=== PATIENT | male | born 1990 | race Caucasian/White ===

== ENCOUNTER 2021-12-26 14:39 | Inpatient (IN) | payer MEDICAID, OTHER ==
[~2021-12-26] VITALS: Ht 175.3 cm; Wt 74.6 kg
[2021-12-26] MEDS ORDERED: CEFEPIME 2 GM in SODIUM CHL 0.9% 50 ML IV ONE (20:45)
[2021-12-26] MEDS ORDERED: KETOROLAC TROMETH 30 MG/ML 1ML VIAL IV ONE (20:45)
[2021-12-26] MEDS ORDERED: BACITRACIN TOP OINT 1 UD PKG TOP ONE (20:45)
[2021-12-26] MEDS ORDERED: SODIUM CHLORIDE 0.9% 1,000 ML IV ONE (20:45)
[2021-12-26] MEDS ORDERED: VANCOMYCIN 1GM/250ML 250 ML IV ONE (20:45)
[2021-12-26 22:07] LABS: Mean Corpuscular Hemoglobin 35.3 pg (28.0-32.0); Mean Corpuscular Hgb Conc. 34.7 g/dL (32.0-36.0)
[2021-12-26 22:09] LABS: Basophils # (auto) 0.1 10 ^3/uL (0-0.2); Basophils % (auto) 0.8 % (0.0-2.0); Eosinophils # (auto) 0.2 10 ^3/uL (0-0.8); Eosinophils % (auto) 1.3 % (0.0-7.0); Hematocrit 39.1 % (41.0-53.0); Hemoglobin 13.6 g/dL (13.5-17.5); Lymphocytes # (auto) 1.7 10 ^3/uL (0.4-5.4); Lymphocytes % (auto) 12.3 % (10.0-50.0); Mean Corpuscular Volume 101.7 fL (80.0-100.0); Monocytes # (auto) 1.6 10 ^3/uL (0-1.3); Monocytes % (auto) 12.1 % (0.0-12.0); Neutrophils # (auto) 9.9 10 ^3/uL (1.6-8.6); Neutrophils % (auto) 73.5 % (37.0-80.0); Red Blood Cells 3.85 10^6/uL (4.5-5.90); Red Cell Distribution Width 13.9 % (11.8-14.3); White Blood Cell 13.5 10^3/uL (4.4-10.8)
[2021-12-26 22:27] LABS: Calcium 8.6 mg/dL (8.5-10.1); Potassium 3.8 mmol/L (3.5-5.1)
[2021-12-27] MEDS ORDERED: ONDANSETRON HCL 4 MG/2 ML VIAL IV PRN (04:00)
[2021-12-27] MEDS ORDERED: VANCOMYCIN PER PHARMACY 0 MG IV SCH (04:00)
[2021-12-27] MEDS ORDERED: ACETAMINOPHEN 325 MG TAB PO PRN (04:00)
[2021-12-27] MEDS ORDERED: DOCUSATE SOD 100 MG CAP PO PRN (04:00)
[2021-12-27] MEDS ORDERED: DEXTROSE (50%) 50ML SYRG IV PRN (04:00)
[2021-12-27 04:41] LABS: Basophils # (auto) 0 10 ^3/uL (0-0.2); Eosinophils # (auto) 0.2 10 ^3/uL (0-0.8); Eosinophils % (auto) 1.3 % (0.0-7.0); Hematocrit 37.1 % (41.0-53.0); Hemoglobin 13.1 g/dL (13.5-17.5); Lymphocytes # (auto) 2.1 10 ^3/uL (0.4-5.4); Mean Corpuscular Hemoglobin 35.3 pg (28.0-32.0); Mean Corpuscular Hgb Conc. 35.3 g/dL (32.0-36.0); Monocytes # (auto) 1.5 10 ^3/uL (0-1.3); Monocytes % (auto) 11.6 % (0.0-12.0); Neutrophils # (auto) 9.2 10 ^3/uL (1.6-8.6); Neutrophils % (auto) 71.1 % (37.0-80.0); Nucleated Red Blood Cells % 0.1 %; Red Blood Cells 3.71 10^6/uL (4.5-5.90); Red Cell Distribution Width 14.1 % (11.8-14.3); White Blood Cell 12.9 10^3/uL (4.4-10.8)
[2021-12-27 05:54] LABS: Albumin 2.7 g/dL (3.4-5.0); BUN/Creatinine Ratio 8.9; Calcium 8.5 mg/dL (8.5-10.1); Potassium 4.2 mmol/L (3.5-5.1)
[2021-12-27 05:56] LABS: Bilirubin, Total 0.2 mg/dL (0.2-1.0); Total Protein 6.7 g/dL (6.4-8.2)
[2021-12-27] MEDS: SODIUM CHLORIDE 0.9% 1,000 ML IV SCH ×2 (06:07→20:40)
[2021-12-27] MEDS ORDERED: MORPHINE SULFATE INJ 2 MG/ml SYRG IV PRN (06:15)
[2021-12-27] MEDS ORDERED: NITROGLYCERIN 0.4 MG SL TAB SL PRN (06:15)
[2021-12-27] MEDS: CEFEPIME 1GM/ 50ML 50 ML IV SCH ×4 (07:59→23:05)
[2021-12-27] MEDS: InsuLIN REG 1unit/0.01ml Soln (100units/ml) SC SCH ×4 (08:12→23:07)
[2021-12-27] MEDS: ACCU-CHEK COMFORT CURVE STRIP VI SCH ×4 (08:12→22:44)
[2021-12-27] MEDS: BACITRACIN TOP OINT 1 UD PKG TOP SCH ×2 (10:05→22:00)
[2021-12-27] MEDS: MULTIPLE VITAMIN TAB PO SCH (10:05)
[2021-12-27] MEDS: ASCORBIC ACID 500 MG TAB PO SCH ×2 (10:05→22:44)
[2021-12-27] MEDS: ZINC SULFATE 220mg CAP or TAB PO SCH (10:05)
[2021-12-27] MEDS: ENOXAPARIN SOD 40 MG/0.4 ML SYRINGE SC SCH (10:06)
[2021-12-27] MEDS: VANCOMYCIN 1GM/250ML 250 ML IV SCH (12:39)
[2021-12-27] MEDS ORDERED: LEVE500T32 PO (14:34)
[2021-12-27] MEDS: HYDROcodone-ACET 5/325MG TAB PO PRN (15:09)
[2021-12-27 15:21] VITALS: BP 122/86
[2021-12-27 17:00] VITALS: BP 117/72
[2021-12-27 21:25] VITALS: BP 120/68
[2021-12-28] MEDS: VANCOMYCIN 1GM/250ML 250 ML IV SCH ×3 (00:01→20:06)
[2021-12-28] MEDS: HYDROcodone-ACET 5/325MG TAB PO PRN ×3 (04:28→22:06)
[2021-12-28 04:58] VITALS: BP 121/74
[2021-12-28] MEDS: CEFEPIME 1GM/ 50ML 50 ML IV SCH ×3 (06:07→22:06)
[2021-12-28] MEDS: InsuLIN REG 1unit/0.01ml Soln (100units/ml) SC SCH ×4 (07:00→21:56)
[2021-12-28] MEDS: ACCU-CHEK COMFORT CURVE STRIP VI SCH ×4 (07:02→21:57)
[2021-12-28 07:32] LABS: Basophils # (auto) 0 10 ^3/uL (0-0.2); Eosinophils # (auto) 0.2 10 ^3/uL (0-0.8); Lymphocytes # (auto) 1.8 10 ^3/uL (0.4-5.4); Mean Corpuscular Hemoglobin 35.8 pg (28.0-32.0); Mean Corpuscular Hgb Conc. 35.7 g/dL (32.0-36.0); Nucleated Red Blood Cells % 0.1 %
[2021-12-28 07:34] LABS: Basophils % (auto) 0.1 % (0.0-2.0); Eosinophils % (auto) 1.5 % (0.0-7.0); Hematocrit 37.1 % (41.0-53.0); Hemoglobin 13.2 g/dL (13.5-17.5); Lymphocytes % (auto) 17.8 % (10.0-50.0); Mean Corpuscular Volume 100.3 fL (80.0-100.0); Monocytes % (auto) 9.5 % (0.0-12.0); Neutrophils # (auto) 7.3 10 ^3/uL (1.6-8.6); Neutrophils % (auto) 71.1 % (37.0-80.0); Red Cell Distribution Width 13.8 % (11.8-14.3); White Blood Cell 10.2 10^3/uL (4.4-10.8)
[2021-12-28 07:51] LABS: Albumin 2.6 g/dL (3.4-5.0); Calcium 8.5 mg/dL (8.5-10.1); Potassium 4.1 mmol/L (3.5-5.1)
[2021-12-28 07:54] LABS: BUN/Creatinine Ratio 13.2
[2021-12-28 07:56] LABS: Bilirubin, Total 0.2 mg/dL (0.2-1.0); Total Protein 6.8 g/dL (6.4-8.2)
[2021-12-28 09:00] VITALS: BP 128/84
[2021-12-28] MEDS: ASCORBIC ACID 500 MG TAB PO SCH ×2 (09:40→22:05)
[2021-12-28] MEDS: ZINC SULFATE 220mg CAP or TAB PO SCH (09:40)
[2021-12-28] MEDS: MULTIPLE VITAMIN TAB PO SCH (09:40)
[2021-12-28] MEDS: ENOXAPARIN SOD 40 MG/0.4 ML SYRINGE SC SCH (09:41)
[2021-12-28] MEDS: BACITRACIN TOP OINT 1 UD PKG TOP SCH ×2 (09:47→22:05)
[2021-12-28] MEDS: SILVER SULFADIAZINE 1 % TOPICAL CREAM 50GM TOP SCH (12:08)
[2021-12-28 13:09] VITALS: BP 106/69
[2021-12-28] MEDS: SODIUM CHLORIDE 0.9% 1,000 ML IV SCH (13:42)
[2021-12-28 15:43] LABS: Amphetamine Screen, Urine POSITIVE (NEGATIVE); Barbiturate Scree,Urine NEGATIVE (NEGATIVE); Benzodiazephine Screen, Urine NEGATIVE (NEGATIVE); Cannabinoid Screen, Urine NEGATIVE (NEGATIVE); Cocaine Screen, Urine NEGATIVE (NEGATIVE); Opiate Scree,Urine NEGATIVE (NEGATIVE); Phencyclidine Screen, Urine NEGATIVE (NEGATIVE)
[2021-12-28 17:00] VITALS: BP 113/70
[2021-12-28 22:00] VITALS: BP 105/73
[2021-12-29] MEDS: VANCOMYCIN 1GM/250ML 250 ML IV SCH ×3 (04:36→19:45)
[2021-12-29 05:00] VITALS: BP 127/78
[2021-12-29] MEDS: SODIUM CHLORIDE 0.9% 1,000 ML IV SCH ×2 (05:30→22:10)
[2021-12-29] MEDS: InsuLIN REG 1unit/0.01ml Soln (100units/ml) SC SCH ×4 (06:20→21:07)
[2021-12-29] MEDS: CEFEPIME 1GM/ 50ML 50 ML IV SCH ×3 (06:20→22:09)
[2021-12-29] MEDS: ACCU-CHEK COMFORT CURVE STRIP VI SCH ×4 (06:21→21:07)
[2021-12-29 07:45] LABS: BUN/Creatinine Ratio 18.2; Calcium 8.6 mg/dL (8.5-10.1); Potassium 4.2 mmol/L (3.5-5.1)
[2021-12-29 08:30] VITALS: BP 120/75
[2021-12-29] MEDS: ASCORBIC ACID 500 MG TAB PO SCH ×2 (10:33→21:06)
[2021-12-29] MEDS: SILVER SULFADIAZINE 1 % TOPICAL CREAM 50GM TOP SCH (10:33)
[2021-12-29] MEDS: BACITRACIN TOP OINT 1 UD PKG TOP SCH ×2 (10:33→21:06)
[2021-12-29] MEDS: ENOXAPARIN SOD 40 MG/0.4 ML SYRINGE SC SCH (10:33)
[2021-12-29] MEDS: MULTIPLE VITAMIN TAB PO SCH (10:33)
[2021-12-29] MEDS: ZINC SULFATE 220mg CAP or TAB PO SCH (10:33)
[2021-12-29 13:00] VITALS: BP 81/43
[2021-12-29 17:00] VITALS: BP 119/80
[2021-12-29] MEDS: HYDROcodone-ACET 5/325MG TAB PO PRN (21:06)
[2021-12-29 22:00] VITALS: BP 118/76
[2021-12-30] VITALS (7 sets, daily range): BP systolic 109–126; BP diastolic 59–76
[2021-12-30] MEDS: VANCOMYCIN 1GM/250ML 250 ML IV SCH ×3 (04:37→20:36)
[2021-12-30] MEDS: CEFEPIME 1GM/ 50ML 50 ML IV SCH ×2 (06:23→14:00)
[2021-12-30] MEDS: InsuLIN REG 1unit/0.01ml Soln (100units/ml) SC SCH ×4 (06:23→21:28)
[2021-12-30] MEDS: ACCU-CHEK COMFORT CURVE STRIP VI SCH ×4 (06:23→21:18)
[2021-12-30] MEDS: ASCORBIC ACID 500 MG TAB PO SCH ×2 (10:00→21:17)
[2021-12-30] MEDS: ENOXAPARIN SOD 40 MG/0.4 ML SYRINGE SC SCH (10:00)
[2021-12-30] MEDS: ZINC SULFATE 220mg CAP or TAB PO SCH (10:20)
[2021-12-30] MEDS: MULTIPLE VITAMIN TAB PO SCH (10:21)
[2021-12-30] MEDS: BACITRACIN TOP OINT 1 UD PKG TOP SCH ×2 (10:22→21:17)
[2021-12-30] MEDS: SILVER SULFADIAZINE 1 % TOPICAL CREAM 50GM TOP SCH (10:22)
[2021-12-30] MEDS: SODIUM CHLORIDE 0.9% 1,000 ML IV SCH (15:20)
[2021-12-30] MEDS: HYDROcodone-ACET 5/325MG TAB PO PRN (18:00)
[2021-12-31] MEDS: CEFEPIME 1GM/ 50ML 50 ML IV SCH ×4 (01:15→21:49)
[2021-12-31] MEDS: VANCOMYCIN 1GM/250ML 250 ML IV SCH ×4 (04:00→20:42)
[2021-12-31 05:00] VITALS: BP 103/64
[2021-12-31 05:35] LABS: Basophils # (auto) 0 10 ^3/uL (0-0.2); Basophils % (auto) 0.1 % (0.0-2.0); Eosinophils # (auto) 0.2 10 ^3/uL (0-0.8); Lymphocytes # (auto) 2.1 10 ^3/uL (0.4-5.4); Monocytes # (auto) 0.9 10 ^3/uL (0-1.3); Monocytes % (auto) 9.8 % (0.0-12.0); Neutrophils # (auto) 5.8 10 ^3/uL (1.6-8.6)
[2021-12-31 05:57] LABS: Potassium 4.1 mmol/L (3.5-5.1)
[2021-12-31 05:58] LABS: Eosinophils % (auto) 2.3 % (0.0-7.0); Hematocrit 39.9 % (41.0-53.0); Hemoglobin 14.4 g/dL (13.5-17.5); Lymphocytes % (auto) 23.6 % (10.0-50.0); Mean Corpuscular Hemoglobin 35.7 pg (28.0-32.0); Mean Corpuscular Hgb Conc. 36.1 g/dL (32.0-36.0); Neutrophils % (auto) 64.2 % (37.0-80.0); Red Blood Cells 4.03 10^6/uL (4.5-5.90); White Blood Cell 9.1 10^3/uL (4.4-10.8)
[2021-12-31 06:02] LABS: BUN/Creatinine Ratio 19.2; Calcium 8.9 mg/dL (8.5-10.1)
[2021-12-31] MEDS: InsuLIN REG 1unit/0.01ml Soln (100units/ml) SC SCH ×4 (06:06→22:00)
[2021-12-31] MEDS: ACCU-CHEK COMFORT CURVE STRIP VI SCH ×4 (06:08→22:25)
[2021-12-31] MEDS: SODIUM CHLORIDE 0.9% 1,000 ML IV SCH (08:00)
[2021-12-31 09:32] VITALS: BP 115/70
[2021-12-31] MEDS: ASCORBIC ACID 500 MG TAB PO SCH ×2 (10:00→21:49)
[2021-12-31] MEDS: SILVER SULFADIAZINE 1 % TOPICAL CREAM 50GM TOP SCH (10:00)
[2021-12-31] MEDS: BACITRACIN TOP OINT 1 UD PKG TOP SCH ×2 (10:00→21:49)
[2021-12-31] MEDS: ENOXAPARIN SOD 40 MG/0.4 ML SYRINGE SC SCH (10:41)
[2021-12-31] MEDS: ZINC SULFATE 220mg CAP or TAB PO SCH (10:41)
[2021-12-31] MEDS: MULTIPLE VITAMIN TAB PO SCH (10:41)
[2021-12-31] MEDS: HYDROcodone-ACET 5/325MG TAB PO PRN ×2 (13:00→22:24)
[2021-12-31 13:24] VITALS: BP 120/72
[2021-12-31 16:37] VITALS: BP 128/86
[2021-12-31] MEDS: Juven Fruit Punch Powder PACKET 28.8gm PO SCH (18:00)
[2021-12-31 21:54] LABS: INR 1.04 (0.9-1.15); Partial Thromboplastin Time 32.5 sec (23.6-33.0)
[2021-12-31 22:00] VITALS: BP 131/81
[2022-01-01] MEDS: SODIUM CHLORIDE 0.9% 1,000 ML IV SCH ×2 (04:31→18:53)
[2022-01-01] MEDS: VANCOMYCIN 1GM/250ML 250 ML IV SCH ×3 (04:31→20:34)
[2022-01-01 05:00] VITALS: BP 109/79
[2022-01-01] MEDS: CEFEPIME 1GM/ 50ML 50 ML IV SCH ×3 (06:17→22:46)
[2022-01-01] MEDS: InsuLIN REG 1unit/0.01ml Soln (100units/ml) SC SCH ×4 (06:18→20:54)
[2022-01-01] MEDS: ACCU-CHEK COMFORT CURVE STRIP VI SCH ×4 (06:19→20:35)
[2022-01-01 08:00] VITALS: BP 114/74
[2022-01-01] MEDS: Juven Fruit Punch Powder PACKET 28.8gm PO SCH ×2 (08:00→18:53)
[2022-01-01] MEDS ORDERED: MIDAZOLAM HCL 2MG/2ML 2ml VIAL (1mg/ml) ONE (08:28)
[2022-01-01] MEDS ORDERED: SODIUM CHLORIDE LOCK 10 ML ONE (08:28)
[2022-01-01] MEDS ORDERED: PROPOFOL 10 MG/ML 20 ML IV ONE (08:28)
[2022-01-01] MEDS ORDERED: ceFAZolin 1GM/50ML 100 ML IV ONE (08:46)
[2022-01-01] MEDS ORDERED: ROPIVACAINE 0.5% (5MG/ML) 20ML AMPULE IJ ONE (09:12)
[2022-01-01] MEDS ORDERED: ceFAZolin 1GM VL ONE (09:12)
[2022-01-01] MEDS ORDERED: fentaNYL CITRATE 100 MCG/2 ML VL ONE (09:14)
[2022-01-01] MEDS ORDERED: ONDANSETRON HCL 4 MG/2 ML VIAL ONE (09:14)
[2022-01-01] MEDS ORDERED: HYDROmorphone HCL 2 MG/ML VL/or syr IV PRN (09:15)
[2022-01-01] MEDS ORDERED: MORPHINE SULFATE 4 MG/ML SYR/VIAL IV PRN (09:15)
[2022-01-01] MEDS ORDERED: METOCLOPRAMIDE HCL 5MG/ml INJ 2ml VIAL IV PRN (09:15)
[2022-01-01] MEDS ORDERED: SILVER SULFADIAZINE 1 % TOPICAL CREAM 50GM TOP ONE (09:39)
[2022-01-01] MEDS: BACITRACIN TOP OINT 1 UD PKG TOP SCH ×2 (11:00→20:54)
[2022-01-01] MEDS: ENOXAPARIN SOD 40 MG/0.4 ML SYRINGE SC SCH (11:00)
[2022-01-01] MEDS: ASCORBIC ACID 500 MG TAB PO SCH ×2 (11:00→20:48)
[2022-01-01] MEDS: MULTIPLE VITAMIN TAB PO SCH (11:00)
[2022-01-01] MEDS: ZINC SULFATE 220mg CAP or TAB PO SCH (11:00)
[2022-01-01] MEDS: SILVER SULFADIAZINE 1 % TOPICAL CREAM 50GM TOP SCH (11:01)
[2022-01-01 12:00] VITALS: BP 118/86
[2022-01-01 16:00] VITALS: BP 118/79
[2022-01-01] MEDS: HYDROcodone-ACET 5/325MG TAB PO PRN ×2 (17:16→20:48)
[2022-01-01 21:55] VITALS: BP 121/68
[2022-01-02] MEDS: VANCOMYCIN 1GM/250ML 250 ML IV SCH ×2 (04:11→12:00)
[2022-01-02 05:00] VITALS: BP 109/65
[2022-01-02] MEDS: CEFEPIME 1GM/ 50ML 50 ML IV SCH (06:55)
[2022-01-02] MEDS: ACCU-CHEK COMFORT CURVE STRIP VI SCH ×2 (06:55→11:30)
[2022-01-02] MEDS: InsuLIN REG 1unit/0.01ml Soln (100units/ml) SC SCH ×2 (06:55→11:30)
[2022-01-02 09:30] VITALS: BP 110/69
[2022-01-02] MEDS: ZINC SULFATE 220mg CAP or TAB PO SCH (09:44)
[2022-01-02] MEDS: BACITRACIN TOP OINT 1 UD PKG TOP SCH (09:44)
[2022-01-02] MEDS: ASCORBIC ACID 500 MG TAB PO SCH (09:44)
[2022-01-02] MEDS: ENOXAPARIN SOD 40 MG/0.4 ML SYRINGE SC SCH (09:45)
[2022-01-02] MEDS: MULTIPLE VITAMIN TAB PO SCH (09:45)
[2022-01-02] MEDS: SILVER SULFADIAZINE 1 % TOPICAL CREAM 50GM TOP SCH (10:00)
[2022-01-02] MEDS: Juven Fruit Punch Powder PACKET 28.8gm PO SCH (12:10)
[2022-01-02] MEDS: SODIUM CHLORIDE 0.9% 1,000 ML IV SCH (12:11)
[2022-01-02 12:32] VITALS: BP 116/66
[2022-01-02] MEDS ORDERED: IBUP600T27 PO (14:59)
[2022-01-02] MEDS ORDERED: SILV1CRE82 TOP (14:59)
[2022-01-02] MEDS ORDERED: ASCO500T11 PO (14:59)
[2022-01-02] MEDS ORDERED: MULTTAB99 PO (14:59)
[2022-01-02] MEDS ORDERED: SULF400T11 PO (14:59)
[2022-01-02 16:26] VITALS: BP 119/79
[2022-01-02 16:41] VITALS: BP 119/79
== END 2022-01-02 17:30 | disposition home health service (06) | DRG 844 ==
LOC: ER 14:39 → OVERFLOW 12-27 06:01 → CENTRAL 12-27 14:20
PROVIDERS: ADMIT Nurse Practitioner Family; ATTEND Hospitalist
PROC: 0JBR0ZZ Excision of Left Foot Subcutaneous Tissue and Fascia, Open Approach (ICD-10-PCS; principal; 2022-01-01 09:24)
DX: T25.222A Burn of second degree of left foot, initial encounter (principal); L03.116 Cellulitis of left lower limb; E87.8 Other disorders of electrolyte and fluid balance, not elsewhere classified; D72.829 Elevated white blood cell count, unspecified; J45.909 Unspecified asthma, uncomplicated; R70.0 Elevated erythrocyte sedimentation rate; Z20.822 Contact with and (suspected) exposure to COVID-19; R73.9 Hyperglycemia, unspecified; X08.8XXA Exposure to other specified smoke, fire and flames, initial encounter; Y93.89 Activity, other specified; Y92.89 Other specified places as the place of occurrence of the external cause; Y99.8 Other external cause status
CPT/HCPCS: 36415; 73718; 80048; 80053; 80202; 80307; 82962; 83036; 83605; 85025; 85610; 85652; 85730; 87070; 87075; 87077; 87186; 87205; 93005; 96365; 96375; G0378; J0690; J1815; J1885; J2250; J2405; J2704